=== PATIENT | male | born 1975 | race Caucasian/White ===

== ENCOUNTER → 2023-04-27 | Outpatient (CLI) | payer OTHER | END | disposition home or self-care (01) | LOC: SHCH 10:16 | PROVIDERS: ATTEND Internal Medicine Cardiovascular Disease | DX: I87.2 Venous insufficiency (chronic) (peripheral) (principal); I87.1 Compression of vein; I73.9 Peripheral vascular disease, unspecified | CPT/HCPCS: 93925; 93970 ==

== ENCOUNTER → 2023-05-01 | Outpatient (CLI) | payer OTHER | END | disposition home or self-care (01) | LOC: SHCH 08:22 → EDUNIT# 08:30 | PROVIDERS: ATTEND Internal Medicine Cardiovascular Disease | DX: I11.9 Hypertensive heart disease without heart failure (principal); I42.1 Obstructive hypertrophic cardiomyopathy; E78.5 Hyperlipidemia, unspecified | CPT/HCPCS: 93306 ==

== ENCOUNTER → 2023-06-20 | Outpatient (CLI) | payer OTHER ==
[2023-06-20 12:28] LABS: ALBUMIN 3.6 g/dL (3.5-5.0); BILIRUBIN,TOTAL 0.5 mg/dL (0.2-1.0); CREATININE 1.1 mg/dL (0.5-1.3); POTASSIUM 4.7 mmol/L (3.5-5.1); TOTAL PROTEIN, SERUM 7.5 g/dL (6.0-8.3)
== END | disposition home or self-care (01) ==
LOC: LAB 10:35
PROVIDERS: ATTEND Internal Medicine Cardiovascular Disease
DX: I42.2 Other hypertrophic cardiomyopathy (principal); I10 Essential (primary) hypertension
CPT/HCPCS: 36415; 80053

== ENCOUNTER → 2023-06-27 | Outpatient (CLI) | payer OTHER ==
[~2023-06-27] MED LIST: IOHEXOL 350 MG/ML 100ML INFUS..BTL IV ONE; METOPROLOL TARTRATE 1 MG/ML 5ML VIAL IV ONE
== END | disposition home or self-care (01) ==
LOC: RAH 09:36
PROVIDERS: ATTEND Internal Medicine Cardiovascular Disease
DX: I25.110 Atherosclerotic heart disease of native coronary artery with unstable angina pectoris (principal); M47.815 Spondylosis without myelopathy or radiculopathy, thoracolumbar region; I70.0 Atherosclerosis of aorta
CPT/HCPCS: 75574; Q9967; J3490

== ENCOUNTER → 2023-11-30 | Outpatient (CLI) | payer OTHER | END | disposition home or self-care (01) | LOC: RAH 13:47 | PROVIDERS: ATTEND Internal Medicine Cardiovascular Disease | DX: J84.9 Interstitial pulmonary disease, unspecified (principal); R07.9 Chest pain, unspecified; R06.09 Other forms of dyspnea; I51.7 Cardiomegaly; M47.815 Spondylosis without myelopathy or radiculopathy, thoracolumbar region; I42.2 Other hypertrophic cardiomyopathy | CPT/HCPCS: 78582; 71046; A9540; A9558 ==

== ENCOUNTER → 2024-02-12 | Outpatient (CLI) | payer OTHER ==
[2024-02-12 12:06] LABS: BASOPHILS # (AUTO) 0.03 K/uL (0.00-0.20); BASOPHILS % (AUTO) 0.3 % (0.0-5.0); EOSINOPHILS # (AUTO) 0.06 K/uL (0.00-0.70); EOSINOPHILS % (AUTO) 0.6 % (0.0-8.0); HEMATOCRIT 44.3 % (42-54); IMMATURE GRANULOCYTE ABSOLUTE 0.04 K/uL (0-1); LYMPHOCYTES # (AUTO) 2.7 K/uL (1.0-4.8); LYMPHOCYTES % (AUTO) 26.3 % (21.0-51.0); MEAN CORPUSCULAR HEMOGLOBIN 28.5 pg (27.0-33.0); MEAN CORPUSCULAR HGB CONC 32.1 g/dL (32.0-36.0); MEAN CORPUSCULAR VOLUME 88.8 fL (79-99); MONOCYTES # (AUTO) 0.6 K/uL (0.1-1.0); MONOCYTES % (AUTO) 5.9 % (3.0-13.0); NEUTROPHILS # (AUTO) 6.9 K/uL (1.8-7.7); NEUTROPHILS % (AUTO) 66.5 % (40.0-77.0); PLATELET COUNT (AUTO) 214 K/uL (130-400); RED BLOOD CELL COUNT(AUTO) 4.99 MIL/uL (4.50-6.20); RED CELL DISTRIBUTION WIDTH 14.8 % (11.0-15.5); WHITE BLOOD COUNT (AUTO) 10.4 K/uL (4.8-10.8)
[2024-02-12 12:21] LABS: INR 1.01 (0.85-1.15); PROTHROMBIN TIME 10.9 SEC (9.6-11.6)
[2024-02-12 12:22] LABS: PARTIAL THROMBOPLASTIN TIME 30.6 SEC (26.3-35.5)
[2024-02-12 12:28] LABS: CREATININE 0.8 mg/dL (0.5-1.3); POTASSIUM 4.2 mmol/L (3.5-5.1)
== END | disposition home or self-care (01) ==
LOC: LAB 10:41
PROVIDERS: ATTEND Internal Medicine Cardiovascular Disease
DX: Z01.812 Encounter for preprocedural laboratory examination (principal); I87.1 Compression of vein; M79.89 Other specified soft tissue disorders
CPT/HCPCS: 36415; 80048; 85025; 85610; 85730

== ENCOUNTER 2024-04-15 00:50 | Observation (INO) | payer OTHER ==
[~2024-04-15] VITALS: Ht 177.8 cm; Wt 122.0 kg
--- NOTE | 2024-04-15 01:30 | HMCIMG ---
CHEST 1VW HISTORY: Chest pain COMPARISON: 11/30/2023 FINDINGS: A frontal projection of the chest was obtained. No acute pulmonary infiltrates is seen. Poststernotomy changes are seen. The heart is enlarged. Degenerative changes of the thoracolumbar spine are present. No evidence of aortic calcification is seen. IMPRESSION: 1. No acute pulmonary infiltrate is seen.
[2024-04-15] MEDS: ondanSETRON 4MG INJ IVP ONE (01:35)
[2024-04-15 01:56] LABS: BASOPHILS # (AUTO) 0.04 K/uL (0.00-0.20); BASOPHILS % (AUTO) 0.7 % (0.0-5.0); EOSINOPHILS # (AUTO) 0.13 K/uL (0.00-0.70); EOSINOPHILS % (AUTO) 2.2 % (0.0-8.0); HEMATOCRIT 42.1 % (42-54); IMMATURE GRANULOCYTE ABSOLUTE 0.03 K/uL (0-1); LYMPHOCYTES # (AUTO) 1.7 K/uL (1.0-4.8); LYMPHOCYTES % (AUTO) 28.1 % (21.0-51.0); MEAN CORPUSCULAR HEMOGLOBIN 28.2 pg (27.0-33.0); MEAN CORPUSCULAR HGB CONC 32.5 g/dL (32.0-36.0); MEAN CORPUSCULAR VOLUME 86.8 fL (79-99); MONOCYTES # (AUTO) 0.8 K/uL (0.1-1.0); NEUTROPHILS # (AUTO) 3.3 K/uL (1.8-7.7); NEUTROPHILS % (AUTO) 55.5 % (40.0-77.0); PLATELET COUNT (AUTO) 157 K/uL (130-400); RED BLOOD CELL COUNT(AUTO) 4.85 MIL/uL (4.50-6.20); RED CELL DISTRIBUTION WIDTH 14.6 % (11.0-15.5); WHITE BLOOD COUNT (AUTO) 5.9 K/uL (4.8-10.8)
[2024-04-15 02:03] LABS: CREATININE 0.8 mg/dL (0.5-1.3); POTASSIUM 3.4 mmol/L (3.5-5.1)
--- NOTE | 2024-04-15 02:04 | ERN ---
ED Note History of Present Illness Stated Complaint: C/O CP, SOB, DRY COUGH Chief Complaint: Chest Pain Time Seen by MD: 01:03 Dictation: This is a 48-year-old male with multiple medical problems presented to the emergency room with complaints of chest pain shortness of breath with a dry cough. Chest pain is mostly precordial that started today. He was also complaining of being hot but he was not febrile in the ER. No syncope His temperature is 98.5 pulse 84 respirations 20 blood pressure 145/94 with a pulse oximetry of 94% on room air His chronic medical problems include diabetes mellitus, hypertension, hypertrophic cardiomyopathy, cardiac surgery and postoperatively developed mediastinitis and sternal wound infection requiring excision of the sternum and skin grafting. ?coronary artery disease status post CABG, hypercholesterolemia and history of back surgeries in the past., peripheral arterial disease awaiting stent placements in legs Allergies: Coded Allergies: No Known Allergies (Unverified Allergy, Unknown, 04/15/24) Past Medical History Past Medical History: Diabetes-Type II, High Cholesterol, Heart Disease, Hypertension Surgical History: Other Surgical History Other: OPEN HEART (2020); BACK SX Family History: Negative Social History: Smokers (Vapes tobacco), Drugs (Vapes cannabis) RN Note Reviewed/Agreed w/PFSH: Yes Review of System Dictation Constitutional: Negative for fever,chills, and weight loss Eyes: Negative for injury, pain,redness, and discharge ENT: Negative for injury,pain or swelling Cardiovascular: Pause for chest pain, palpitations, and edema Respiratory: Positive for shortness of breath, cough, and wheezing, Abdomen/GI: Negative for abdominal pain, nausea, vomiting, diarrhea, and constipation Back: Negative for injury and pain : Negative for injury, bleeding and discharge MS/Extremity: Negative for injury and deformity Skin: Negative for rash, and discoloration Neuro: Negative for headache, weakness, numbness, tingling, and seizure Psych: Negative for suicide ideation, homicidal ideation, and hallucinations Initial Vital Sign VS Vital Signs Date Time Temp Pulse Resp B/P (MAP) Pulse Ox O2 Delivery O2 Flow Rate FiO2 04/15/24 00:52 98.4 86 20 145/94 94 Room Air 04/15/24 01:40 0 21 Physical Exam Dictation General: awake, alert, NAD morbidly obese male Head/Face: Normocephalic, atraumatic Eyes: PERRL, EOMI, vision at baseline ENT: oral cavity clear, TMs clear, no signs of infection Neck: Trachea midline, supple, no nuchal rigidity Cardiovascular: RRR, normal S1/S2, No MRGs, no JVD well-healed scars from previous sternotomy and also a sternal defect from his previous excision noted. Respiratory: CTAB, no respiratory distress, No rales or wheezes Abdomen: Soft, non-tender, non-distended, normal bowel sounds, no guarding or rebound. Skin: Warm, dry, normal turgor, no rash MS/Extremity: Pulses equal, no cyanosis, neurovascular intact, FROM Neuro: COAx4, GCS 15, strength 5/5, CN 2-12 intact, normal cerebellar exam, normal gait, Psych: Normal behavior, mood, and affect normal Extremities-trace edema without any palpable cords, Homans sign is negative Results (Laboratory/Radiology) Laboratory/Radiology Laboratory Tests Test 04/15/24 01:30 04/15/24 02:13 White Blood Count 5.9 K/uL (4.8-10.8) Red Blood Count 4.85 MIL/uL (4.50-6.20) Hemoglobin 13.7 g/dL (14.0-18.0) L Hematocrit 42.1 % (42-54) Mean Corpuscular Volume 86.8 fL (79-99) Mean Corpuscular Hemoglobin 28.2 pg (27.0-33.0) Mean Corpuscular Hemoglobin Concent 32.5 g/dL (32.0-36.0) Red Cell Distribution Width 14.6 % (11.0-15.5) Platelet Count 157 K/uL (130-400) Mean Platelet Volume 11.9 fL (7.5-10.5) H Immature Granulocyte % (Auto) 0.5 % (0-1) Neutrophils (%) (Auto) 55.5 % (40.0-77.0) Lymphocytes (%) (Auto) 28.1 % (21.0-51.0) Monocytes (%) (Auto) 13.0 % (3.0-13.0) Eosinophils (%) (Auto) 2.2 % (0.0-8.0) Basophils (%) (Auto) 0.7 % (0.0-5.0) Neutrophils # (Auto) 3.3 K/uL (1.8-7.7) Lymphocytes # (Auto) 1.7 K/uL (1.0-4.8) Monocytes # (Auto) 0.8 K/uL (0.1-1.0) Eosinophils # (Auto) 0.13 K/uL (0.00-0.70) Basophils # (Auto) 0.04 K/uL (0.00-0.20) Absolute Immature Granulocyte (auto 0.03 K/uL (0-1) Nucleated Red Blood Cells 0.0 % (0.0-0.19) Sodium Level 140 mmol/L (136-145) Potassium Level 3.4 mmol/L (3.5-5.1) L Chloride Level 103 mmol/L (101-111) Carbon Dioxide Level 27 mmol/L (21-32) Blood Urea Nitrogen 11 mg/dL (7-18) Creatinine 0.8 mg/dL (0.5-1.3) Glomerular Filtration Rate Calc 111 mL/min (>90) Random Glucose 81 mg/dL (70-105) Total Calcium 8.3 mg/dL (8.5-10.1) L Total Creatine Kinase 29 U/L (21-232) Troponin I < 0.05 ng/mL (0.00-0.05) Labs Reviewed?: Yes EKG Comment: Twelve lead EKG done on 04/15/2024 at 12:40 a.m. showed a heart rate of 86 CT interval 190 QRS 168, QT/QTC 414/495 Impression normal sinus rhythm with intraventricular conduction delay perhaps related to right bundle branch block and left anterior fascicular block. Also evidence of left atrial enlargement noted. I did not appreciate any acute ST elevations. Some of the ST depressions noted in the septal anterior leads could be related to the bundle branch block Interpreted by ER MD Dr. Steele X-RAY Comment: PATIENT: RODNEY RESENDEZ MR#: [id number] : 1975 SEX: M AGE: 48 LOCATION: ED ORDER STATUS: REG ER REPORT#: [id number] SERVICE REASON: CHEST PAIN ORDERING PHYSICIAN: SUMMER STEELE MD PROCEDURE: CXR1VW - CHEST 1VW CHEST 1VW HISTORY: Chest pain COMPARISON: 11/30/2023 FINDINGS: A frontal projection of the chest was obtained. No acute pulmonary infiltrates is seen. Poststernotomy changes are seen. The heart is enlarged. Degenerative changes of the thoracolumbar spine are present. No evidence of aortic calcification is seen. IMPRESSION: 1. No acute pulmonary infiltrate is seen. DICTATED BY: CARLOS MACIAS MD DATE: 04/15/24126 ELECTRONICALLY SIGNED BY: CARLOS MACIAS MD DATE: 04/15/24129 CT Scan Comment: PATIENT: RODNEY RESENDEZ MR#: [id number] : 1975 SEX: M AGE: 48 LOCATION: EDH ORDER STATUS: [facility] REPORT#: [id number] SERVICE REASON: CHEST PAIN ORDERING PHYSICIAN: SUMMER STEELE MD PROCEDURE: CXR1VW - CHEST 1VW CHEST 1VW HISTORY: Chest pain COMPARISON: 11/30/2023 FINDINGS: A frontal projection of the chest was obtained. No acute pulmonary infiltrates is seen. Poststernotomy changes are seen. The heart is enlarged. Degenerative changes of the thoracolumbar spine are present. No evidence of aortic calcification is seen. IMPRESSION: 1. No acute pulmonary infiltrate is seen. DICTATED BY: CARLOS MACIAS MD DATE: 04/15/24126 ELECTRONICALLY SIGNED BY: CARLOS MACIAS MD DATE: 04/15/24129 ED Course ED Course Orders Procedure Category Date Status Time Vital Signs Per CPOE 04/15/24 Transmitted Routine 00:58 B-Type Natriuretic LAB 04/15/24 In Process Peptide 00:58 Chest 1vw RAD 04/15/24 Resulted 00:58 12 Lead Ekg Tracing- EKG 04/15/24 Logged Technical 00:58 Oxygen By Nc/Pulse Ox CPOE 04/15/24 Transmitted 00:58 Maintain Iv CPOE 04/15/24 Transmitted 00:58 Iv Insertion CPOE 04/15/24 Transmitted 00:58 Cardiac Monitoring CPOE 04/15/24 Transmitted 00:58 Pulse Oximetry With CPOE 04/15/24 Transmitted Vs And Prn 00:58 Cbc With Differential LAB 04/15/24 In Process 00:58 Activity: Br W/Brp CPOE 04/15/24 Transmitted With Assist 00:58 Creatine Kinase, Total LAB 04/15/24 Complete 00:58 Urinalysis Profile LAB 04/15/24 Logged 00:58 Troponin Poc Order LAB 04/15/24 Complete Only 00:58 Bedside Troponin-I LAB.ER 04/15/24 In Process (Poc) 00:58 Basic Metabolic Panel LAB 04/15/24 Complete 00:58 Ondansetron 4mg Inj PHA 04/15/24 Complete (Zofran 4mg Inj) 01:30 Morphine 4mg Syg PHA 04/15/24 In Process (Morphine 4mg Syg) 03:00 Aspirin 325mg Tab PHA 04/15/24 In Process (Aspirin 325mg Tab) 03:00 Troponin Poc Order LAB 04/15/24 Logged Only 02:40 Current Medications Medications (Trade) Dose Ordered Sig/Janett Route PRN Reason Start Time Stop Time Status Last Admin Dose Admin Aspirin (Aspirin 325mg Tab) 325 mg ONCE ONCE PO 04/15/24 03:00 04/15/24 03:01 Morphine Sulfate (morPHINE 4MG SYG) 4 mg ONCE ONCE IVP 04/15/24 03:00 04/15/24 03:01 Ondansetron HCl (zoFRAN 4MG INJ) 4 mg ONCE ONCE IVP 04/15/24 01:30 04/15/24 01:31 DC 04/15/24 01:35 Vital Signs Date Time Temp Pulse Resp B/P (MAP) Pulse Ox O2 Delivery O2 Flow Rate FiO2 04/15/24 01:40 98.4 84 18 127/65 99 Room Air* 0 21 04/15/24 00:52 98.4 86 20 145/94 94 Room Air We will perform diagnostic labs, advanced imaging and administer medications according to the patient's complaint. Once the results are available, will review and personally interpreted the labs to rule out any acute life- threatening emergency the trach require immediate intervention and treatment. I will then re-evaluate the patient after treatment and diagnostic exams have return to determine whether the patient requires any further testing, can safely be discharged home or need further admission to hospital for additional treatment and evaluation. Labs reviewed BNP 7 shows a potassium of 3.4, chest x-ray shows cardiomegaly CBC is with a normal limits. First set of troponins negative With patient's extensive cardiac surgery and risk factors, I recommended that he be admitted to the hospital for further evaluation including a stress test as deemed necessary. He is agreeable Patient accepted by [facility] provider for [facility] hospitalist group for admission HEART Score Response (Comments) Value History: Moderate suspicion (+1) 1 EKG: Repolarization changes 1 Age: 45-65yrs (+1) 1 Risk Factors: 1-2 risk factors (+1) 1 Initial Troponin: Normal limit (0) 0 HEART Score Risk: Low Risk for MACE (1-3) Total 4 Medical Decision Making MDM MDM: Differential diagnosis: Unstable angina, diastolic dysfunction, musculoskeletal, esophageal pain, post thoracic surgery pain Rationale: Tests considered and ordered secondary to shared decision making include: labs, ECG and radiology Previous outside records reviewed: Old ER visits. Risk of complication and/or morbidity or mortality of patient management: None Medications-Per medication reconciliation Need for hospitalization: Patient does meet criteria for hospitalization. Need for emergency major/minor surgery: No There are no social concerns with this patient. Prescription drug management Prescriptions will include symptomatic care Patient's prior external medical records from other ER visits were reviewed by me as indicated. Prior testing and results from previous visits were reviewed. Prior tests were taken into account with medical decision making and resource utilization, independent historian/historians were used to obtain complete medical history. I independently interpreted the test that were performed, results were reviewed by me and considered findings on radiology if ordered. Medical management and examination interpretation discussions were had by me with other qualified healthcare professionals as indicated for the patient's care. Problem List Problem List: (1) Chest pain (2) Hypertrophic cardiomyopathy (3) History of open heart surgery (4) Diabetes mellitus (5) Hypercholesterolemia (6) Tobacco abuse (7) Cannabis use disorder DX & DISP Disposition: Inpatient Decision to Admit Time: 02:32 Departure Impression: Primary Impression: Chest pain Additional Impressions: Hypertrophic cardiomyopathy, History of open heart surgery, Diabetes mellitus, Hypercholesterolemia, Tobacco abuse, Cannabis use disorder Condition: Stable Additional Instructions: Patient was informed of all the diagnostic labs and procedures conducted in the emergency room today and demonstrated understanding of the results. I personal ly reviewed and interpreted all the diagnostic exams performed in the ER today. The patient will be admitted to the hospital for further treatment and evaluation. Disposition-admit to facility Condition-stable/guarded Course-uncertain at this time Pain status-decreased Assessment-exam unchanged Admission Certification- I certify that the patients status is appropriate and is based on my best clinical judgment and the patient's condition as documented in the medical records Referrals: ADELINE AMADOR MD (PCP) SUMMER STEELE MD Apr 15, 2024 02:04
[2024-04-15 02:56] LABS: B-TYPE NATRIURETIC PEPTIDE 7 pg/mL (0-100)
[2024-04-15] MEDS: morPHINE 4 MG SYG IVP ONE (02:57)
[2024-04-15] MEDS: ASPIRIN 325MG TAB PO ONE (02:57)
[2024-04-15 03:21] LABS: APPEARANCE,URINE CLEAR (CLEAR); BILIRUBIN,URINE NEGATIVE (NEGATIVE); COLOR,URINE YELLOW (YELLOW); GLUCOSE, URINE (UA) NEGATIVE (NEGATIVE); KETONES,URINE 10 mg/dL (NEGATIVE); LEUKOCYTE ESTERASE ,URINE NEGATIVE Leu/uL (NEGATIVE); NITRATE,URINE NEGATIVE (NEGATIVE); OCCULT BLOOD,URINE NEGATIVE (NEGATIVE); PH,URINE 5.5 (5.0-8.0); PROTEIN,URINE NEGATIVE (NEGATIVE); UROBILINOGEN,URINE 0.2 mg/dL (0.2-1.0)
[2024-04-15 03:24] LABS: ADD UA MICROSCOPIC NO
[2024-04-15] MEDS: PoTASSium chloRIDE 10MEQ/100ML 100 ML IV ONE (03:26)
[2024-04-15] MEDS: PoTASSium chloRIDE 20MEQ ER 20 MEQ ERTAB PO PRN (03:26)
[2024-04-15 03:28] LABS: AMPHET/METH SCREEN,URINE NEGATIVE (NEGATIVE); BARBITURATE SCREEN, URINE NEGATIVE (NEGATIVE); BENZODIAZEPINES SCREEN,URINE NEGATIVE (NEGATIVE); CANNABINOID SCREEN,URINE POSITIVE (NEGATIVE); COCAINE SCREEN,URINE NEGATIVE (NEGATIVE); OPIATE SCREEN,URINE NEGATIVE (NEGATIVE); PHENCYCLIDINE SCREEN,URINE NEGATIVE (NEGATIVE)
[2024-04-15] MEDS ORDERED: GLUCAGON 1MG KIT 1 MG ML IM PRN (03:30)
[2024-04-15] MEDS ORDERED: DEXTROSE 50%-WATER 50 ML DISP.SYRIN IV PRN (03:30)
[2024-04-15] MEDS ORDERED: 0.9% NACL 250ML 250 ML IV SCH (03:30)
[2024-04-15] MEDS ORDERED: PoTASSium chloRIDE 20MEQ/100ML 100 ML IV PRN (03:30)
[2024-04-15] MEDS ORDERED: PoTASSium chl 10% ELIXIR 20MEQ 20 MEQ/15 ML UDCUP PO PRN (03:30)
[2024-04-15] MEDS ORDERED: TEMAZepam 15 MG CAPSULE PO PRN (04:00)
[2024-04-15] MEDS ORDERED: ondanSETRON 4MG INJ IVP PRN (04:00)
[2024-04-15] MEDS ORDERED: hydrALAZine 20MG/ML VIAL IV PRN (04:00)
[2024-04-15] MEDS ORDERED: acetaMINOPHEN 650 MG SUPPOSITORY RC PRN (04:00)
[2024-04-15] MEDS ORDERED: NITROGLYCERIN 0.4 MG SL TAB SL PRN (04:00)
[2024-04-15] MEDS ORDERED: LACTULOSE 20 GM/30 ML UDCUP PO PRN (04:00)
[2024-04-15] MEDS ORDERED: acetaMINOPHEN 325 MG TAB PO PRN (04:00)
[2024-04-15] MEDS ORDERED: doCUSate SODIUM 100 MG CAP PO PRN (04:00)
--- NOTE | 2024-04-15 04:09 | NUR ---
MEDS NOT RECON, NOT AVIAL AT BEDSIDE
[2024-04-15 04:18] LABS: ALBUMIN 3.6 g/dL (3.5-5.0); BILIRUBIN,DIRECT 0.2 mg/dL (0.0-0.3); BILIRUBIN,TOTAL 0.9 mg/dL (0.2-1.0); THYROID STIMULATING HORMONE 1.73 uIU/mL (0.36-3.74); TOTAL PROTEIN, SERUM 7.1 g/dL (6.0-8.3)
[2024-04-15 04:24] LABS: SARS-CoV-2, RNA, NAAT NEGATIVE SARS CoV-2 (NEGATIVE)
[2024-04-15 04:27] LABS: INFLUENZA TYPE A Negative For Type A (NEGATIVE); INFLUENZA TYPE B Negative For Type B (NEGATIVE)
[2024-04-15 04:32] LABS: HEMOGLOBIN A1C 4.8 % (4.0-6.0)
[2024-04-15] MEDS: MAGNESIUM 2GM PREMIX 50ML 50 ML IV PRN (05:19)
--- NOTE | 2024-04-15 05:46 | NUR ---
REPEAT EKG DONE- SEEN BY DR LARA NO FURTHER ORDERS
--- NOTE | 2024-04-15 06:52 | EKG ---
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
--- NOTE | 2024-04-15 06:53 | EKG ---
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
[2024-04-15] MEDS: INSULIN humuLIN R 100 UNIT/ML 3ML SQ SCH (07:30)
[2024-04-15] MEDS: ASPIRIN 81MG CHEW TAB PO SCH (08:30)
[2024-04-15] MEDS: ENOXAPARIN SODIUM 40 MG/0.4 ML SYRINGE SQ SCH (08:36)
--- NOTE | 2024-04-15 09:07 | HP ---
[facility] HISTORY & PHYSICAL Date Patient Seen: Apr 15, 2024 Time of Visit: 09:06 Supervising Physician: Dr. Rojas Primary Care Physician: Dr. Judson Ruby Outpatient Specialists: Cardiology Dr. Ring Inpatient Consults: Cardiology PROBLEM LIST: Chest pain rule out ACS -HEART score 4 -Troponins are negative x2 in the progression of 1st < 0.05, 2nd 8. -D-DIMER 279. Diabetes mellitus type 2. - Hemoglobin A1c 4.8 estimated blood glucose average 91 Hypertension. Hyperlipidemia. Peripheral arterial disease awaiting stent placement. Recreational drug use, tox screen + cannabis. Morbid obesity with a BMI of 38.6. History of hypertrophic cardiomyopathy, ??? CAD s/p CABG in 2019. HPI: This is a 48-year-old male patient who has past medical history that is signif icant for hypertension, diabetes mellitus type 2, hyperlipidemia, morbid obesity and hypertrophic cardiomyopathy with ??? CAD status post CABG in 2019 and peripheral arterial disease awaiting stent placement to the lower extremities. Per the patient report, he was doing well until he began experiencing a dry cough over the past two days. This later progressed into chest pain pre dominantly on the left and radiating down the left upper extremity. Considering his history, the patient decided to come into the emergency department for further evaluation and management of his condition. Upon initial presentation to the emergency department, initial vital signs were unremarkable. He was breathing on room air. Laboratory data showed a slightly decreased sodium to 3.4, troponin were negative and a D-dimer was negative. Chest x-ray obtained showed no acute airspace disease. The patient during my visit remained in the emergency department and denied any further chest pain. Staff nurse reports no acute events overnight. No new complaint. PAST MEDICAL HX: see above PAST SURGICAL HX: noncontributory SOCIAL HISTORY: No tobacco, ETOH, or illicit drug use Coded Allergies: No Known Allergies (Unverified Allergy, Unknown, 04/15/24) REVIEW OF SYSTEMS: 12 point ROS reviewed with patient. Pertinent positives mentioned above. Otherwise negative. PHYSICAL EXAM: GENERAL: alert, weak, awake oriented x 3 HEENT: EOMI, Sclera non icteric, moist mucosa NECK: Supple, no JVD, trachea midline LUNGS: Clear breath sounds bilaterally. No wheezes HEART: Regular rate and rhythm. Normal S1 and S2, without murmurs ABD: Abdomen soft, nontender. Bowel sounds present EXT: No clubbing cyanosis or edema NEURO: Alert and oriented to person, follows commands Vital Signs (last 8hr) Date Time Temp Pulse Resp B/P (MAP) Pulse Ox O2 Delivery O2 Flow Rate FiO2 04/15/24 07:36 98.1 71 16 110/62 94 Room Air* 0 21 04/15/24 05:47 98.8 82 18 132/65 96 Room Air* 0 21 04/15/24 04:07 98.4 84 18 127/65 95 Room Air* 0 21 04/15/24 01:40 98.4 84 18 127/65 99 Room Air* 0 21 LABS: Hematology Labs: Test 04/15/24 01:30 Range/Units White Blood Count 5.9 4.8-10.8 K/uL Red Blood Count 4.85 4.50-6.20 MIL/uL Hemoglobin 13.7 L 14.0-18.0 g/dL Hematocrit 42.1 42-54 % Mean Corpuscular Volume 86.8 79-99 fL Mean Corpuscular Hemoglobin 28.2 27.0-33.0 pg Mean Corpuscular Hemoglobin Concent 32.5 32.0-36.0 g/dL Red Cell Distribution Width 14.6 11.0-15.5 % Platelet Count 157 130-400 K/uL Mean Platelet Volume 11.9 H 7.5-10.5 fL Immature Granulocyte % (Auto) 0.5 0-1 % Neutrophils (%) (Auto) 55.5 40.0-77.0 % Lymphocytes (%) (Auto) 28.1 21.0-51.0 % Monocytes (%) (Auto) 13.0 3.0-13.0 % Eosinophils (%) (Auto) 2.2 0.0-8.0 % Basophils (%) (Auto) 0.7 0.0-5.0 % Neutrophils # (Auto) 3.3 1.8-7.7 K/uL Lymphocytes # (Auto) 1.7 1.0-4.8 K/uL Monocytes # (Auto) 0.8 0.1-1.0 K/uL Eosinophils # (Auto) 0.13 0.00-0.70 K/uL Basophils # (Auto) 0.04 0.00-0.20 K/uL Absolute Immature Granulocyte (auto 0.03 0-1 K/uL Nucleated Red Blood Cells 0.0 0.0-0.19 % Chemistry Labs: Test 04/15/24 07:32 04/15/24 02:13 04/15/24 01:30 Range/Units Whole Blood Glucose 80 70-110 MG/DL Troponin I < 0.05 0.00-0.05 ng/mL Sodium Level 140 136-145 mmol/L Potassium Level 3.4 L 3.5-5.1 mmol/L Chloride Level 103 101-111 mmol/L Carbon Dioxide Level 27 21-32 mmol/L Blood Urea Nitrogen 11 7-18 mg/dL Creatinine 0.8 0.5-1.3 mg/dL Glomerular Filtration Rate Calc 111 >90 mL/min Random Glucose 81 70-105 mg/dL Hemoglobin A1c 4.8 4.0-6.0 % Estimated Average Glucose (eAG) 91 70-126 mg/dL Total Calcium 8.3 L 8.5-10.1 mg/dL Magnesium Level 1.70 L 1.80-2.40 mg/dL Total Bilirubin 0.9 0.2-1.0 mg/dL Direct Bilirubin 0.2 0.0-0.3 mg/dL Aspartate Amino Transf (AST/SGOT) 18 10-37 U/L Alanine Aminotransferase (ALT/SGPT) 24 12-78 U/L Alkaline Phosphatase 82 50-136 U/L Total Creatine Kinase 29 21-232 U/L B-Type Natriuretic Peptide 7 0-100 pg/mL Total Protein 7.1 6.0-8.3 g/dL Albumin 3.6 3.5-5.0 g/dL Thyroid Stimulating Hormone (TSH) 1.73 0.36-3.74 uIU/mL Coagulation Labs: Test 04/15/24 01:30 Range/Units D-Dimer Quantitative (PE/DVT) 279 0-500 ng/mL DIAGNOSTICS / RADIOLOGY RESULTS: [ ] PLAN Currently, the patient remains in the emergency department and denies any chest pain. Calculated heart score was four. The patient troponin x2 were negative and D-dimer was negative. BNP level was a 7. On the monitor during my visit the patient remained hemodynamically stable. He was started on aspirin 81and Lipitor. A 2D echo was ordered to evaluate the cardiac structures and function. The consideration was also made to consult Cardiology. After evaluating the findings and calculating his heart score, I do not believe the patient's chest pain would be related to a diseased heart, rather be related to musculoskeletal from his recent cough. Patient has an established PCP and Cardiology in the outpatient setting which I believe he can continue following up. I will discuss with the patient regarding the possibility of discharging the patient home today. No other complaint. NEURO: Minimize central acting medications as possible. Maintain fall precautions, adequate lighting during the day PULMONARY: Supplemental 02 as needed. Maintain aspiration precautions at all times CARDIOVASCULAR: Follow hemodynamics. Vital signs per facility protocol GI & NUTRITION: Continue with nutritional support. Continue stool softeners and laxatives as needed. KIDNEYS & ELECTROLYTES: Strict monitoring of intake, output and overall fluid balance. Avoid nephrotoxic medications to the extent possible. Medications to be dosed according to renal function. Monitor electrolytes and replace as needed ENDOCRINE: Maintain blood glucose between 100-180 at all times. Hypoglycemia protocol in place INFECTIOUS DISEASE: Trend temperature, WBC and procalcitonin level Follow cultures, deescalate antibiotics as soon as possible. Panculture if new onset fever ONCOLOGY/HEMATOLOGY/COAGULATION: Monitor for s/s of bleeding Monitor hemoglobin, coagulation studies as needed SKIN: Pressure ulcer prevention per facility protocol Specialty mattress ORTHO/REHAB: Continue PT/OT Prophylaxis: Continue GI and DVT prophylaxis Code Status: Full Resuscitation Disposition: TBD Other: Total patient care time exceeds 35 minutes excluding all procedures. FRANCIS ROBERT NP Apr 15, 2024 09:07
[2024-04-15] MEDS ORDERED: METO-391 PO (10:09)
[2024-04-15] MEDS ORDERED: ALPR2TAB2 PO (10:09)
[2024-04-15] MEDS ORDERED: LAMO150T6 PO (10:09)
[2024-04-15] MEDS ORDERED: CLON0.1T PO (10:09)
[2024-04-15] MEDS ORDERED: QUET300T2 PO (10:09)
[2024-04-15] MEDS ORDERED: VENL25TA33 PO (10:09)
[2024-04-15] MEDS ORDERED: VILA40TA PO (10:09)
[2024-04-15] MEDS ORDERED: ROSU10TA72 PO (10:09)
[2024-04-15] MEDS ORDERED: METO-409 PO (10:09)
[2024-04-15] MEDS ORDERED: GABA-1405 PO ×2 (10:09)
[2024-04-15] MEDS ORDERED: DOLU1TAB2 PO (10:09)
--- NOTE | 2024-04-15 11:06 | EKG ---
[facility] Test Date: 2024-04-15 Test Time: 11:02:15 Pat Name: RODNEY RESENDEZ Department: EDHIP Room: ED 10 Gender: M Laborer Dairy Farm: as : 1975 Requested By: MELISSA IVERSON Order Number: [id number] Reading MD: Rigo Gates Measurements Intervals [place] Rate: 69 P: 3 [place]: 202 QRS: -61 QRSD: 167 T: 18 QT: 442 QTc: 473 Interpretive Statements Sinus rhythm Borderline prolonged [place] interval Probable left atrial enlargement RBBB and LAFB Compared to ECG 04/15/2024 05:24:44 No significant changes Electronically Signed On 04-15-2024 16:45:40 KILN CAR REPAIRER by Rigo Gates Please click the below link to view image of tracing.
--- NOTE | 2024-04-15 12:30 | NUR ---
DCP: HOME Sw met with pt and his mother Nisreen Mosley [phone] at bedside. Pt lives alone, independently in his . Has 3 steps with rail to enter the home. Pt reports he remains able to complete ADLS on his own, uses no DME or home cares services. PCP is Khoa Ruby and uses [facility] for rx. Pt denies dc needs and will return home at dc Addendum: 04/15/24 at 1235 by JIMBO GAGE SS Amended: Links added.
--- NOTE | 2024-04-15 15:49 | NUR ---
BENCHMARK AT BEDSIDE
--- NOTE | 2024-04-15 16:28 | NUR ---
BS 66, ORANGE JUICE AND SANDWICH GIVEN
--- NOTE | 2024-04-15 16:31 | DS ---
[facility] DISCHARGE SUMMARY Date Patient Seen: Apr 15, 2024 Time of Visit: 16:20 Supervising Physician: Dr. Rojas Primary Care Physician: Dr. Judson Ruby Outpatient Specialists: Cardiology Dr. Ring Inpatient Consults: Cardiology PROBLEM LIST: Chest pain rule out ACS -HEART score 4 -Troponins are negative x2 in the progression of 1st < 0.05, 2nd 8. -D-DIMER 279. Diabetes mellitus type 2. - Hemoglobin A1c 4.8 estimated blood glucose average 91 Hypertension. Hyperlipidemia. Peripheral arterial disease awaiting stent placement. Recreational drug use, tox screen + cannabis. Morbid obesity with a BMI of 38.6. History of hypertrophic cardiomyopathy, ??? CAD s/p CABG in 2019. HOSPITAL COURSE: HPI (per admitting provider) This is a 48-year-old male patient who has past medical history that is significant for hypertension, diabetes mellitus type 2, hyperlipidemia, morbid obesity and hypertrophic cardiomyopathy with ??? CAD status post CABG in 2019 and peripheral arterial disease awaiting stent placement to the lower extremities. Per the patient report, he was doing well until he began experiencing a dry cough over the past two days. This later progressed into chest pain predominantly on the left and radiating down the left upper extremity. Considering his history, the patient decided to come into the emergency department for further evaluation and management of his condition. Upon initial presentation to the emergency department, initial vital signs were unremarkable. He was breathing on room air. Laboratory data showed a slightly decreased sodium to 3.4, troponin were negative and a D-dimer was negative. Chest x-ray obtained showed no acute airspace disease. The patient during my visit remained in the emergency department and denied any further chest pain. Staff nurse reports no acute events overnight. No new complaint. The patient was treated for the following problems: After evaluating the findings and calculating his heart score, I do not believe the patient's chest pain would be related to a diseased heart, rather be related to musculoskeletal from his recent onset of cough. Patient has an established PCP and Cardiology in the outpatient setting which I believe he can continue following up. I discuss with the patient regarding the possibility of discharging the patient home today and he was agreeable on discharging home and following up in the outpatient setting. I did advise the patient to seek an appointment with his cook box filler for further follow up. I also advised the pa tient that if the pain should recur or worsen he may return to the emergency department for further evaluation and management of his condition. ACTIVE PROBLEM LIST FOR THE HOSPITALIZATION: Chest pain rule out ACS CHRONIC PROBLEMS: continue previous management per PCP unless otherwise indicated OCEANOGRAPHIC METEOROLOGIST FINDINGS/RECOMMENDATIONS: None PROCEDURES: None DISCHARGE MEDICATIONS: Follow up with PCP hours of discharge. Seek follow up with cook box filler. Pt hemodynamically stable and afebrile at time of discharge. PCP notified of patients admission, hospital course and discharge. PHYSICAL EXAM: GENERAL: alert, weak, awake oriented x 3 HEENT: EOMI, Sclera non icteric, moist mucosa NECK: Supple, no JVD, trachea midline LUNGS: Clear breath sounds bilaterally. No wheezes HEART: Regular rate and rhythm. Normal S1 and S2, without murmurs ABD: Abdomen soft, nontender. Bowel sounds present EXT: No clubbing cyanosis or edema NEURO: Alert and oriented to person, follows commands FOLLOW-UP: Follow-up with PCP in 2-3 days RECOMMENDATIONS: See Discharge Instructions This case was seen and discussed with my supervising physician. More than 30 minutes spent on discharge process, including evaluation of the patient, discussion with nursing staff, medication reconciliation and follow-up appointments FRANCIS ROBERT NP Apr 15, 2024 16:31
[2024-04-15 17:55] VITALS: BP 132/78; PULSE 74; RESP 16; TEMP 98.2; O2SAT 94
[2024-04-15] MEDS ORDERED: metoPROLOL tartRATE 25 MG TAB PO SCH (21:00)
[2024-04-15] MEDS ORDERED: atorVAStatin 40 MG TABLET PO SCH (21:00)
== END 2024-04-15 17:53 | disposition home or self-care (01) ==
LOC: EDH 00:50 → EDHIP 03:02
PROVIDERS: ADMIT Internal Medicine Critical Care Medicine; ATTEND Internal Medicine Critical Care Medicine
DX: R07.9 Chest pain, unspecified (principal); Z20.822 Contact with and (suspected) exposure to COVID-19; E11.51 Type 2 diabetes mellitus with diabetic peripheral angiopathy without gangrene; I11.9 Hypertensive heart disease without heart failure; E66.01 Morbid (severe) obesity due to excess calories; F12.90 Cannabis use, unspecified, uncomplicated; I42.2 Other hypertrophic cardiomyopathy; E78.00 Pure hypercholesterolemia, unspecified; R60.0 Localized edema; I25.10 Atherosclerotic heart disease of native coronary artery without angina pectoris; F17.200 Nicotine dependence, unspecified, uncomplicated; Z95.5 Presence of coronary angioplasty implant and graft; Z68.38 Body mass index [BMI] 38.0-38.9, adult; Z95.1 Presence of aortocoronary bypass graft; Z79.899 Other long term (current) drug therapy
CPT/HCPCS: 96372; 96365; 96375; 99285; 83036; 84443; 82550; 80076; 83735; 84484 ×2; 80048; 83880; 80305; 85025; 85378; 87804 ×2; 82948 ×4; 81003; 36415; 87635; 71045; 93005 ×3; G0378 ×15; J3475; J2405; J2270; J1650

== ENCOUNTER → 2025-02-17 | Outpatient (CLI) | payer OTHER ==
--- NOTE | 2025-02-17 22:58 | HMCIMG ---
EXAM: MR LUMBAR SPINE WITHOUT IV CONTRAST CLINICAL HISTORY: Dorsalgia, unspecified. TECHNIQUE: Multiplanar and multisequence MR images of the lumbar spine obtained without IV contrast. CONTRAST: None. COMPARISON: None. FINDINGS: VERTEBRAE: Vertebral body heights are preserved. Evidence of prior surgery involving the lumbosacral spine with surgical hardware at L4, L5, S1, S2 levels with transpedicular fixation screws and plates bilaterally. There are multilevel anterior marginal osteophytes and Modic type II endplate changes in the lumbar spine. Disc spacer is appropriately positioned at L4-L5 and L5-S1 levels. Schmorl's nodes are visualized at L1-L2 and L2-L3 levels. Bilateral laminectomy is visualized at L4 and L5 levels. VERTEBRAL ALIGNMENT: There is grade I spondylolisthesis at L5 over S1. There is preservation of the normal lumbar lordosis. AXIAL LEVELS DEMONSTRATE: T11-T12: Central disc extrusion measuring 8 x 6 mm is present causing thecal sac indentation. T12-L1: No disc herniation, central canal narrowing, neural foraminal narrowing, or nerve root impingement. L1/2: Small central and bilateral paracentral disc protrusion, left greater than right, causing thecal sac indentation and minimal encroachment upon the lateral recesses without significant narrowing. No traversing or exiting nerve root compression. Mild bilateral facet arthropathy, left greater than right. L2/3: Mild bilateral facet arthropathy. Grade I narrowing of the bilateral lateral recesses without traversing nerve root impingement. No neural foraminal narrowing or exiting nerve root compression. L3/4: Bilateral moderate facet arthropathy and ligamentum flavum thickening. Small central and bilateral paracentral disc protrusions causing grade I central canal, lateral recess, and neural foraminal narrowing without nerve root impingement. L4/5: No disc herniation, central canal narrowing, neural foraminal narrowing, or nerve root impingement. L5/S1: 4 mm pseudobulge of the disc in the central and bilateral foraminal regions causing grade I neural foraminal narrowing, without exiting nerve root impingement. No evidence of clumping of the cauda equina nerve roots. CORD: The lumbosacral spinal canal is suspicious. Normal position and signal intensity of the conus medullaris. SOFT TISSUES: There is no CSF leakage. IMPRESSION: 1. Lumbar spondylosis with multilevel degenerative disc and facet arthropathy. 2. Status post lumbosacral spine surgery with bilateral laminectomy at L4, L5 levels and surgical hardware at L4 through S2 levels. No evidence of arachnoiditis. 3. Grade I spondylolisthesis at L5 over S1. 4. Multilevel small disc herniations without nerve root impingement. /[place]
== END | disposition home or self-care (01) ==
LOC: RAH 13:11
PROVIDERS: ATTEND Family Medicine
DX: M47.816 Spondylosis without myelopathy or radiculopathy, lumbar region (principal); M54.9 Dorsalgia, unspecified; M54.40 Lumbago with sciatica, unspecified side; M43.17 Spondylolisthesis, lumbosacral region; M48.07 Spinal stenosis, lumbosacral region; M51.379 Other intervertebral disc degeneration, lumbosacral region without mention of lumbar back pain or lower extremity pain; M25.78 Osteophyte, vertebrae; M51.46 Schmorl's nodes, lumbar region; M51.24 Other intervertebral disc displacement, thoracic region
CPT/HCPCS: 72148